=== PATIENT | female | born 1975 | race Caucasian/White ===

== ENCOUNTER 2018-08-31 19:00 | Inpatient (IN) | payer BC, OTHER ==
[~2018-08-31] VITALS: Ht 154.9 cm; Wt 89.8 kg
[2018-08-31] MEDS ORDERED: METO-357 PO (21:07)
[2018-08-31] MEDS ORDERED: ONDANSETRON 4 MG/2 ML VIAL IM PRN (21:15)
[2018-08-31] MEDS ORDERED: DICYCLOMINE HCL 20 MG TABLET PO PRN (21:15)
[2018-08-31] MEDS ORDERED: LORAZEPAM 2 MG/1 ML VIAL IM PRN (21:15)
[2018-08-31] MEDS ORDERED: MIRALAX 17 GM POWD.PACK PO PRN (21:15)
[2018-08-31] MEDS ORDERED: THIAMINE HCL 200 MG/2 ML VIAL IM ONE (21:15)
[2018-08-31] MEDS ORDERED: LOPERAMIDE HCL 2 MG CAPSULE PO PRN ×2 (21:15)
[2018-08-31] MEDS ORDERED: MAGNESIUM HYDROXIDE 30 ML LIQUID UDC PO PRN (21:15)
[2018-08-31] MEDS ORDERED: IBUPROFEN 600 MG TABLET PO PRN (21:15)
[2018-08-31] MEDS ORDERED: MAG HYDROX/AL HYDROX/SIMETH 30 ML LIQUID UDC PO PRN (21:15)
[2018-08-31] MEDS ORDERED: LORAZEPAM 1 MG TABLET PO PRN (21:15)
[2018-08-31 21:17] LABS: *URINE HCG, QUAL NEGATIVE (NEGATIVE)
[2018-08-31 21:18] LABS: BASOPHILS # (AUTO) 0.1 K/uL (0.0-8.0); BASOPHILS % (AUTO) 1.1 % (0.0-2.0); EOSINOPHILS # (AUTO) 0.1 K/uL (0.0-0.7); HEMOGLOBIN 14.6 g/dL (10.9-14.3); LYMPHOCYTES # (AUTO) 2.1 K/uL (20.0-40.0); LYMPHOCYTES % (AUTO) 19.4 % (20.5-51.5); MEAN CORPUSCULAR HEMOGLOBIN 35.2 uug (24.7-32.8); MEAN CORPUSCULAR HGB CONC 34 g/dL (32.3-35.6); MEAN CORPUSCULAR VOLUME 103.8 fL (75.5-95.3); MONOCYTES # (AUTO) 0.5 K/uL (2.0-10.0); MONOCYTES % (AUTO) 4.6 % (0.0-11.0); NEUTROPHILS # (AUTO) 7.9 K/uL (1.8-8.9); NEUTROPHILS % (AUTO) 73.9 % (38.5-71.5); PLATELET COUNT (AUTO) 131 K/uL (179-408); RED BLOOD CELL COUNT(AUTO) 4.14 MIL/uL (3.63-4.92); WHITE BLOOD COUNT (AUTO) 10.7 K/uL (3.8-11.8)
[2018-08-31 21:32] LABS: ALANINE AMINOTRANSFERASE 33 U/L (14-59); ALKALINE PHOSPHATASE 163 U/L (50-136); AMYLASE 43 U/L (25-115); ASPARTATE AMINOTRANSFERASE 71 U/L (15-37); BILIRUBIN,TOTAL 1.5 mg/dL (0.2-1.0); CARBON DIOXIDE 25 mmol/L (21-32); CHLORIDE 99 mmol/L (98-107); CREATININE 0.7 mg/dL (0.6-1.3); GLUCOSE 134 mg/dL (74-106); LIPASE 230 U/L (73-393); MAGNESIUM 1.3 mg/dL (1.8-2.4); POTASSIUM 3.9 mmol/L (3.5-5.1); TOTAL PROTEIN, SERUM 8.6 g/dL (6.4-8.2); UREA NITROGEN, BLOOD 9 mg/dL (7-18)
[2018-08-31 21:34] LABS: ETHANOL < 3 MG/DL (0-0)
[2018-08-31 21:37] LABS: *AMPHETAMINE, URINE NEGATIVE (NEGATIVE); *BARBITURATE, URINE NEGATIVE (NEGATIVE); *CANNABINOID, URINE NEGATIVE (NEGATIVE); *COCCAINE, URINE NEGATIVE (NEGATIVE); *OPIATE, URINE POSITIVE (NEGATIVE); *PHENCYCLIDINE SCREEN,URINE NEGATIVE (NEGATIVE)
[2018-08-31] MEDS ORDERED: MAGNESIUM OXIDE 400 MG TABLET PO ONE (21:45)
[2018-08-31 21:58] LABS: THYROID STIMULATING HORMONE 2.723 mIU/mL (0.358-3.740)
[2018-08-31] MEDS: ONDANSETRON ODT 4 MG TAB.RAPDIS SL PRN (22:10)
[2018-08-31] MEDS: LORAZEPAM 1 MG TABLET PO PRN (22:10)
[2018-08-31] MEDS: CLONIDINE HCL 0.1 MG TABLET PO PRN (23:14)
[2018-09-01 08:05] VITALS: BP 127/74
[2018-09-01] MEDS: FOLIC ACID 1 MG TABLET PO SCH (08:15)
[2018-09-01] MEDS: MULTIVITAMINS,THERAPEUTIC TABLET PO SCH (08:16)
[2018-09-01] MEDS: THIAMINE HCL 100 MG TABLET PO SCH (08:16)
[2018-09-01] MEDS: LORAZEPAM 1 MG TABLET PO PRN (08:16)
[2018-09-01] MEDS ORDERED: TUBERCULIN,PURIF.PROT.DERIV. 5 TU/0.1 ML TEST ID ONE (09:00)
[2018-09-01] MEDS ORDERED: 5 DAY TAPER OF LORAZEPAM -SERENITY PROTOCOL PO PRN (09:15)
[2018-09-01] MEDS: LORAZEPAM 1 MG TABLET PO SCH ×3 (12:38→21:01)
[2018-09-01] MEDS: CLONIDINE HCL 0.1 MG TABLET PO PRN ×2 (12:39→21:01)
[2018-09-01 12:42] VITALS: BP 165/109
[2018-09-01 13:51] LABS: BILIRUBIN,TOTAL 1.3 mg/dL (0.2-1.0); CREATININE 1.1 mg/dL (0.6-1.3); MAGNESIUM 1.9 mg/dL (1.8-2.4); POTASSIUM 4.1 mmol/L (3.5-5.1); TOTAL PROTEIN, SERUM 7.7 g/dL (6.4-8.2)
[2018-09-01 16:38] VITALS: BP 154/99
[2018-09-01 20:01] VITALS: BP 109/75
[2018-09-01] MEDS: HYDROXYZINE PAMOATE 25 MG CAPSULE PO PRN (21:01)
[2018-09-02] MEDS: ACETAMINOPHEN 325 MG TABLET PO PRN (05:49)
[2018-09-02 08:00] VITALS: BP 137/95
[2018-09-02] MEDS: LORAZEPAM 1 MG TABLET PO SCH ×3 (10:04→20:53)
[2018-09-02] MEDS: MULTIVITAMINS,THERAPEUTIC TABLET PO SCH (10:05)
[2018-09-02] MEDS: THIAMINE HCL 100 MG TABLET PO SCH (10:05)
[2018-09-02] MEDS: FOLIC ACID 1 MG TABLET PO SCH (10:05)
[2018-09-02 10:08] LABS: HEPATITIS B SURFACE AG Negative (Negative)
[2018-09-02 12:00] VITALS: BP 180/117
[2018-09-02] MEDS: CLONIDINE HCL 0.1 MG TABLET PO PRN (12:10)
[2018-09-02 13:10] VITALS: BP 168/100
[2018-09-02] MEDS: ESCITALOPRAM OXALATE 10 MG TABLET PO SCH (13:30)
[2018-09-02 16:00] VITALS: BP 122/70
[2018-09-02] MEDS: hydrALAZINE HCL 25 MG TABLET PO PRN (16:32)
[2018-09-02 20:02] VITALS: BP 110/54
[2018-09-02] MEDS: HYDROXYZINE PAMOATE 25 MG CAPSULE PO PRN (20:53)
[2018-09-03 06:38] LABS: BASOPHILS % (AUTO) 0.8 % (0.0-2.0); EOSINOPHILS % (AUTO) 2.5 % (0.0-7.0); HEMATOCRIT 39.4 % (31.2-41.9); HEMOGLOBIN 13.3 g/dL (10.9-14.3); LYMPHOCYTES % (AUTO) 21.8 % (20.5-51.5); MEAN CORPUSCULAR HEMOGLOBIN 35.8 uug (24.7-32.8); MEAN CORPUSCULAR HGB CONC 34 g/dL (32.3-35.6); MEAN CORPUSCULAR VOLUME 106.3 fL (75.5-95.3); MONOCYTES % (AUTO) 3.8 % (0.0-11.0); NEUTROPHILS % (AUTO) 71.1 % (38.5-71.5); PLATELET COUNT (AUTO) 96 K/uL (179-408); RED BLOOD CELL COUNT(AUTO) 3.71 MIL/uL (3.63-4.92); WHITE BLOOD COUNT (AUTO) 9.2 K/uL (3.8-11.8)
[2018-09-03 06:39] LABS: BASOPHILS # (AUTO) 0.1 K/uL (0.0-8.0); EOSINOPHILS # (AUTO) 0.2 K/uL (0.0-0.7); MONOCYTES # (AUTO) 0.4 K/uL (2.0-10.0); NEUTROPHILS # (AUTO) 6.6 K/uL (1.8-8.9)
[2018-09-03 06:54] LABS: BILIRUBIN,TOTAL 1.1 mg/dL (0.2-1.0); CREATININE 0.9 mg/dL (0.6-1.3); POTASSIUM 4.5 mmol/L (3.5-5.1); TOTAL PROTEIN, SERUM 7.4 g/dL (6.4-8.2)
[2018-09-03 07:35] LABS: BAND % (MANUAL) 2 % (0-10); EOSINOPHILS % (MANUAL) 2 % (0-8); LYMPHOCYTES % (MANUAL) 21 % (20-40); MONOCYTES % (MANUAL) 4 % (2-10); NEUTROPHILS % (MANUAL) 71 % (42-75)
[2018-09-03 08:00] VITALS: BP 145/92
[2018-09-03] MEDS ORDERED: IBUPROFEN 600 MG TABLET PO PRN (08:00)
[2018-09-03] MEDS: THIAMINE HCL 100 MG TABLET PO SCH (08:52)
[2018-09-03] MEDS: LORAZEPAM 1 MG TABLET PO SCH ×4 (08:52→20:49)
[2018-09-03] MEDS: ESCITALOPRAM OXALATE 10 MG TABLET PO SCH (08:52)
[2018-09-03] MEDS: FOLIC ACID 1 MG TABLET PO SCH (08:52)
[2018-09-03] MEDS: MULTIVITAMINS,THERAPEUTIC TABLET PO SCH (08:53)
[2018-09-03 12:05] VITALS: BP 161/94
[2018-09-03] MEDS: HYDROXYZINE PAMOATE 25 MG CAPSULE PO PRN ×2 (12:06→18:08)
[2018-09-03] MEDS: hydrALAZINE HCL 25 MG TABLET PO PRN ×2 (12:06→18:08)
[2018-09-03 16:35] VITALS: BP 170/107
[2018-09-03] MEDS: CLONIDINE HCL 0.1 MG TABLET PO PRN (16:37)
[2018-09-03] MEDS: ONDANSETRON ODT 4 MG TAB.RAPDIS SL PRN (18:33)
[2018-09-03] MEDS ORDERED: HYDROXYZINE PAMOATE 25 MG CAPSULE PO ONE (19:00)
[2018-09-03] MEDS ORDERED: hydrALAZINE HCL 25 MG TABLET PO ONE (19:00)
[2018-09-03 20:00] VITALS: BP 143/85
[2018-09-03] MEDS: diphenhydrAMINE 50 MG CAPSULE PO PRN (20:49)
[2018-09-04] VITALS (7 sets, daily range): BP systolic 124–170; BP diastolic 77–106
[2018-09-04] MEDS: ACETAMINOPHEN 325 MG TABLET PO PRN (08:12)
[2018-09-04] MEDS: THIAMINE HCL 100 MG TABLET PO SCH (08:12)
[2018-09-04] MEDS: FOLIC ACID 1 MG TABLET PO SCH (08:12)
[2018-09-04] MEDS: MULTIVITAMINS,THERAPEUTIC TABLET PO SCH (08:12)
[2018-09-04] MEDS: LORAZEPAM 1 MG TABLET PO SCH ×3 (08:13→20:48)
[2018-09-04] MEDS: ESCITALOPRAM OXALATE 10 MG TABLET PO SCH (08:13)
[2018-09-04] MEDS: HYDROXYZINE PAMOATE 25 MG CAPSULE PO PRN (18:45)
[2018-09-04] MEDS: CLONIDINE HCL 0.1 MG TABLET PO PRN (18:46)
[2018-09-04] MEDS: hydrALAZINE HCL 25 MG TABLET PO PRN (18:48)
[2018-09-04] MEDS: diphenhydrAMINE 50 MG CAPSULE PO PRN (20:48)
[2018-09-05] VITALS (7 sets, daily range): BP systolic 130–181; BP diastolic 69–105
[2018-09-05] MEDS: ESCITALOPRAM OXALATE 10 MG TABLET PO SCH (08:26)
[2018-09-05] MEDS: FOLIC ACID 1 MG TABLET PO SCH (08:27)
[2018-09-05] MEDS: MULTIVITAMINS,THERAPEUTIC TABLET PO SCH (08:27)
[2018-09-05] MEDS: LORAZEPAM 1 MG TABLET PO SCH ×2 (08:27→20:42)
[2018-09-05] MEDS: THIAMINE HCL 100 MG TABLET PO SCH (08:27)
[2018-09-05] MEDS: CLONIDINE HCL 0.1 MG TABLET PO PRN (16:37)
[2018-09-05] MEDS: hydrALAZINE HCL 25 MG TABLET PO PRN (16:38)
[2018-09-05] MEDS: METOPROLOL TARTRATE 25 MG TABLET PO SCH (20:42)
[2018-09-05] MEDS: diphenhydrAMINE 50 MG CAPSULE PO PRN (20:42)
[2018-09-06] VITALS (8 sets, daily range): BP systolic 129–170; BP diastolic 73–93
[2018-09-06] MEDS: ACETAMINOPHEN 325 MG TABLET PO PRN ×2 (02:23→15:33)
[2018-09-06 07:54] LABS: BASOPHILS # (AUTO) 0.1 K/uL (0.0-8.0); BASOPHILS % (AUTO) 0.7 % (0.0-2.0); EOSINOPHILS # (AUTO) 0.2 K/uL (0.0-0.7); EOSINOPHILS % (AUTO) 2.6 % (0.0-7.0); HEMATOCRIT 42.4 % (31.2-41.9); HEMOGLOBIN 14.2 g/dL (10.9-14.3); LYMPHOCYTES # (AUTO) 2.2 K/uL (20.0-40.0); LYMPHOCYTES % (AUTO) 22.9 % (20.5-51.5); MEAN CORPUSCULAR HEMOGLOBIN 35.6 uug (24.7-32.8); MEAN CORPUSCULAR HGB CONC 34 g/dL (32.3-35.6); MEAN CORPUSCULAR VOLUME 106.4 fL (75.5-95.3); MONOCYTES # (AUTO) 0.8 K/uL (2.0-10.0); MONOCYTES % (AUTO) 8.5 % (0.0-11.0); NEUTROPHILS # (AUTO) 6.2 K/uL (1.8-8.9); NEUTROPHILS % (AUTO) 65.3 % (38.5-71.5); PLATELET COUNT (AUTO) 107 K/uL (179-408); RED BLOOD CELL COUNT(AUTO) 3.98 MIL/uL (3.63-4.92); WHITE BLOOD COUNT (AUTO) 9.6 K/uL (3.8-11.8)
[2018-09-06 08:04] LABS: BILIRUBIN,DIRECT 0.5 mg/dL (0.0-0.2); TOTAL PROTEIN, SERUM 7.9 g/dL (6.4-8.2)
[2018-09-06] MEDS: MULTIVITAMINS,THERAPEUTIC TABLET PO SCH (08:59)
[2018-09-06] MEDS: ESCITALOPRAM OXALATE 10 MG TABLET PO SCH (08:59)
[2018-09-06] MEDS: THIAMINE HCL 100 MG TABLET PO SCH (09:00)
[2018-09-06] MEDS: METOPROLOL TARTRATE 25 MG TABLET PO SCH ×2 (09:00→20:07)
[2018-09-06] MEDS: FOLIC ACID 1 MG TABLET PO SCH (09:00)
[2018-09-06] MEDS ORDERED: DIPH50CA37 PO (13:52)
[2018-09-06] MEDS ORDERED: HYDR25TA86 PO (13:52)
[2018-09-06] MEDS ORDERED: METO25TA6 PO (13:52)
[2018-09-06] MEDS ORDERED: ESCI10TA PO (13:52)
[2018-09-06] MEDS ORDERED: HYDR-3895 PO (13:52)
[2018-09-06] MEDS: hydrALAZINE HCL 25 MG TABLET PO PRN (15:40)
[2018-09-06] MEDS: HYDROXYZINE PAMOATE 25 MG CAPSULE PO PRN (20:07)
[2018-09-06] MEDS: diphenhydrAMINE 50 MG CAPSULE PO PRN (20:07)
[2018-09-07 01:00] VITALS: BP 144/81
[2018-09-07] MEDS ORDERED: TRAZODONE 50 MG TABLET PO ONE (01:00)
[2018-09-07 08:00] VITALS: BP 167/75
[2018-09-07] MEDS: ESCITALOPRAM OXALATE 10 MG TABLET PO SCH (08:47)
[2018-09-07] MEDS: MULTIVITAMINS,THERAPEUTIC TABLET PO SCH (08:47)
[2018-09-07] MEDS: THIAMINE HCL 100 MG TABLET PO SCH (08:47)
[2018-09-07] MEDS: FOLIC ACID 1 MG TABLET PO SCH (08:47)
[2018-09-07 08:48] VITALS: BP 167/65
[2018-09-07] MEDS: hydrALAZINE HCL 25 MG TABLET PO PRN (08:48)
[2018-09-07] MEDS: METOPROLOL TARTRATE 25 MG TABLET PO SCH (08:48)
== END 2018-09-07 09:47 | disposition other institution (70) | DRG 895 ==
LOC: SRC 19:57
PROVIDERS: ADMIT Family Medicine Addiction Medicine; ATTEND Family Medicine Addiction Medicine
PROC: HZ2ZZZZ Detoxification Services for Substance Abuse Treatment (ICD-10-PCS; principal; 2018-08-31)
PROC: HZ41ZZZ Group Counseling for Substance Abuse Treatment, Behavioral (ICD-10-PCS; 2018-09-01)
PROC: HZ31ZZZ Individual Counseling for Substance Abuse Treatment, Behavioral (ICD-10-PCS; 2018-09-03)
DX: F10.230 Alcohol dependence with withdrawal, uncomplicated (principal); Y90.9 Presence of alcohol in blood, level not specified; Z81.1 Family history of alcohol abuse and dependence; F17.210 Nicotine dependence, cigarettes, uncomplicated; F41.9 Anxiety disorder, unspecified; K76.9 Liver disease, unspecified; B19.20 Unspecified viral hepatitis C without hepatic coma; E83.42 Hypomagnesemia; I10 Essential (primary) hypertension; K08.89 Other specified disorders of teeth and supporting structures; D69.6 Thrombocytopenia, unspecified; F32.9 Major depressive disorder, single episode, unspecified; F11.10 Opioid abuse, uncomplicated; F15.10 Other stimulant abuse, uncomplicated
CPT/HCPCS: 36415; 70030-TC; 80307; 80361; 83690; 83735; 84443; 84703; 85025; 86580; 86592; 86705; 86803; 87340; 87806; 93005; A4663; G0480; J2405; J3411; Q0162; Q0163